=== PATIENT | male | born 1945 | race Caucasian/White ===

== ENCOUNTER 2021-07-05 10:21 | Emergency (ER) | payer BC ==
[~2021-07-05] VITALS: Ht 177.8 cm; Wt 100.2 kg
--- NOTE | 2021-07-05 10:21 | NUR ---
PT BIBA FULL ARREST TAKEN TO ER BED 6.
--- NOTE | 2021-07-05 10:22 | NUR ---
REPORTED TO ED BED 6 FOR FULL ARREST. ASSISTED IN CHEST COMPRESSIONS AND HAND BAGGING VIA AMBU BAG. DETAILS ON CODE SHEET.
--- NOTE | 2021-07-05 10:34 | NUR ---
SPOKE TO NEVA RODRIGUEZ [facility] WILL CALL BACK IN AN HOUR FOR UPDATED INFORMATION. REFERENCE NUMBER IS [id number]
--- NOTE | 2021-07-05 11:00 | NUR ---
PT BROUGHT IN MY [place] [employer] IN [employer]GR[employer] BAGGED VIA [employer]. IO TO LEFT [place]ON[place]. SEE CODE SHEET FOR MEDS. TIME OF 1023.
--- NOTE | 2021-07-05 11:01 | NUR ---
FAMILY AT BEDSIDE. DAUGHTERS CONTACT MICHAEL ALESSIO [phone]. DR CHANG IS PTS PCP. ATTEMPTING TO REACH PCP.
--- NOTE | 2021-07-05 11:12 | NUR ---
UNABLE TO REACH DR ADEN OFFICE, PHONE WILL RING AND THEN HANG UP, NO MESSAGE OR ANSWERING SERVICE.
--- NOTE | 2021-07-05 11:17 | NUR ---
SPOKE TO FREDDY AT [facility] STATES MANAGER DISCOVERY MANUFACTURING TEST TECHNICIAN WILL CALL WITH A CASE NUMBER.
--- NOTE | 2021-07-05 11:20 | NUR ---
SPOKE TO FAMILY PCP IS DR DMITRY URENA. HANS GAINES.
--- NOTE | 2021-07-05 12:08 | NUR ---
DR URENA WILL SIGN CERTIFICATE
--- NOTE | 2021-07-05 12:29 | NUR ---
SPOKE TO CLINICAL PHARMACOLOGIST RECEIVED . BODY IS RELEASED AND NOT A CORONERS CASE.
--- NOTE | 2021-07-05 12:36 | NUR ---
FAMILY DOES NOT HAVE A MORTURARY FOR PT AT THIS TIME, STATES WILL CONTACT IT COMPLIANCE ANALYST WHEN THEY HAVE INFORMATION. CONTACT NUMBER PROVIDED.
--- NOTE | 2021-07-05 13:58 | NUR ---
PT MOVED TO OVERFLOW, ROOM 128, AWAITING MORTUARY
--- NOTE | 2021-07-05 17:00 | NUR ---
daughter kel rosario need body to put in mortuary, she will call trey Addendum: 07/05/21 at 1745 by Lindsay Wolfe RN trey number [phone]
--- NOTE | 2021-07-05 18:59 | NUR ---
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
--- NOTE | 2021-07-05 19:37 | NUR ---
MICHAEL MCCALLUM [phone] Addendum: 07/05/21 at 1938 by MEDDM DAUGHTER OF PT MICHAEL [phone] WHEN PT PICKED UP BY [facility]
--- NOTE | 2021-07-05 21:11 | NUR ---
[facility] CAME TO [employer] BUS DRIVER PT
== END 2021-07-05 10:23 ==
LOC: MED 10:21
DX: I46.9 Cardiac arrest, cause unspecified (principal)
CPT/HCPCS: 92950; 99291